=== PATIENT | male | born 1960 | race Caucasian/White ===

== ENCOUNTER 2023-09-10 15:23 | Emergency (ER) | payer BC, OTHER ==
[2023-09-10] MEDS ORDERED: fentaNYL 50 mcg/mL 1 mL Vial ONE ×2 (15:26→15:54)
[2023-09-10 15:35] LABS: #Basophils 0.1 thou/uL (0.0-0.2); #Eosinphils 0.3 thou/uL (0.0-0.7); #Lymphocytes 2.4 thou/uL (1.20-3.40); #Monocytes 0.6 thou/uL (0.11-0.59); %Basophils 1.4 % (0.0-1.0); %Lymphocytes 28.6 % (21.0-51.0); %Monocytes 7.4 % (0.0-10.0); %Neutrophils 59.7 % (42.0-75.0); Hematocrit 44.4 % (42.0-52.0); Mean Corpuscular HGB CONC 33.9 g/dL (32.0-36.0); Mean Corpuscular Hemoglobin 32.1 pg (27.0-31.0); Mean Corpuscular Volume 94.7 fl (78.0-98.0); Platelet Count 243 10x3/uL (130-400); RBC Distribution Width 11.5 % (11.5-14.5); Red Blood Cell (RBC) Count 4.68 mill/uL (4.70-6.10); White Blood Cell (WBC) Count 8.3 10x3/uL (4.8-10.8)
[2023-09-10 15:50] LABS: ALT (SGPT) 21 U/L (8-55); AST (SGOT) 20 U/L (5-34); Albumin 4.4 g/dL (3.4-4.8); Alkaline Phosphatase 75 U/L (40-110); Anion Gap 19 mmol/L (10-20); BUN (Urea Nitrogen) 25 mg/dL (8.4-25.7); Bilirubin, Total 0.7 mg/dL (0.2-1.2); Calc. Creatinine Clearance 0 mL/min (70-130); Calcium 9.5 mg/dL (7.8-10.44); Carbon Dioxide 17 mmol/L (23-31); Chloride 109 mmol/L (98-107); Estimated GFR 47; Globulin 2.4 g/dL (2.4-3.5); Glucose 124 mg/dL (80-115); Potassium 3.9 mmol/L (3.5-5.1); Protein, Total 6.8 g/dL (5.8-8.1); Sodium 141 mmol/L (136-145)
== END 2023-09-10 16:44 | disposition short-term general hospital (02) ==
LOC: BURERS 15:23
DX: T20.20XA Burn of second degree of head, face, and neck, unspecified site, initial encounter (principal); T22.10XA Burn of first degree of shoulder and upper limb, except wrist and hand, unspecified site, initial encounter; I10 Essential (primary) hypertension; E11.9 Type 2 diabetes mellitus without complications; X04.XXXA Exposure to ignition of highly flammable material, initial encounter
CPT/HCPCS: 80053; 85025; 96374; J3010